=== PATIENT | male | born 1970 | race Caucasian/White ===

== ENCOUNTER → 2022-04-12 | Outpatient (CLI) | payer MEDICARE, MEDICAID ==
[~2022-04-12] MED LIST: ACET-819 PO; CEPH-38 PO; CLIN-62 PO; HYDR1TAB PO; IBP800T PO; MECL25TA56 PO; MUPI1OIN5 NS; OMEP-10 PO; SULF1TAB38 PO; TRM50T PO; [UNRECOGNIZED DRUG - CODE] PO
== END ==
LOC: CARD 11:00
PROVIDERS: ATTEND Internal Medicine Cardiovascular Disease
DX: I25.10 Atherosclerotic heart disease of native coronary artery without angina pectoris (principal); I10 Essential (primary) hypertension
CPT/HCPCS: 93306